=== PATIENT | female | born 1975 | race Caucasian/White ===

== ENCOUNTER 2023-01-06 08:18 | Outpatient (CLI) | payer MEDICAID, SELFPAY ==
--- NOTE | 2023-01-06 08:34 | XRR_ITS ---
PROCEDURE INFORMATION: Exam: XR Right Shoulder Exam date and time: 01/06/2023 8:45 AM Age: 47 years old Clinical indication: Pain and injury or trauma; Fall; Blunt trauma (contusions or hematomas); Shoulder; Right; Injury date: 4 days ago; Additional info: R shoulder pain TECHNIQUE: Imaging protocol: Radiologic exam of the right shoulder. Views: 2 or more views. COMPARISON: No relevant prior studies available. FINDINGS: Bones/joints: Glenohumeral alignment is normal. The proximal humerus is intact. The visible portion of the clavicle is intact. 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 Visible portions of the ribs are intact. The scapula is intact. Soft tissues: Visible soft tissues are unremarkable. Visible soft tissues are unremarkable. XR/XR shoulder RT min 2V* [id number] IMPRESSION: No acute findings.
--- NOTE | 2023-01-06 08:34 | XRR_ITS ---
PROCEDURE INFORMATION: Exam: XR Right Hip Exam date and time: 01/06/2023 8:45 AM Age: 47 years old Clinical indication: Pain and injury or trauma; Fall; Blunt trauma (contusions or hematomas); Hip pain; Right hip; Injury date: 4 days ago; Additional info: R hip pain, to include the pelvis TECHNIQUE: Imaging protocol: Radiologic exam of the right hip. Views: 1 view hip with pelvis when performed. COMPARISON: No relevant prior studies available. FINDINGS: Bones/joints: femoroacetabular alignment is normal bilaterally. The proximal femora are intact. The bony pelvis is intact. The sacrum and SI joints are unremarkable. 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 Soft tissues: Visible soft tissues are unremarkable. XR/XR hip RT 2-3V wo/w pel* [id number] IMPRESSION: No acute fracture.
--- NOTE | 2023-01-06 08:34 | XRR_ITS ---
PROCEDURE INFORMATION: Exam: XR Left Knee Exam date and time: 01/06/2023 8:45 AM Age: 47 years old Clinical indication: Pain and injury or trauma; Fall; Blunt trauma; Knee; Left; Injury date: 4 days ago; Additional info: L knee pain TECHNIQUE: Imaging protocol: Radiologic exam of the left knee. Views: 3 views. COMPARISON: No relevant prior studies available. FINDINGS: Bones/joints: Alignment is normal. Joint spaces are preserved. Small medial compartment tibiofemoral osteophytes. No joint effusion. No acute fracture. Soft tissues: There are scattered surgical clips in the medial thigh and upper calf. No soft tissue mass or edema. XR/XR knee LT 3V* [id number] IMPRESSION: No acute findings.
== END 2023-01-06 08:19 | disposition home or self-care (01) ==
LOC: RAD 08:24
PROVIDERS: PCP Nurse Practitioner Family; Visit Provider Nurse Practitioner Family
DX: M25.511 Pain in right shoulder (principal); M25.551 Pain in right hip; M25.562 Pain in left knee; W19.XXXA Unspecified fall, initial encounter
CPT/HCPCS: 73030; 73502; 73562